=== PATIENT | male | born 1995 | race African-American/Black ===

== ENCOUNTER 2019-07-30 17:41 | Emergency (ER) | payer MEDICAID ==
[~2019-07-30] VITALS: Ht 170.2 cm; Wt 52.2 kg
[2019-07-30 18:04] VITALS: BP 130/68
[2019-07-30] MEDS ORDERED: HYDROCODONE/APAP 5/325MG 1 EACH TABLET ONE (18:56)
[2019-07-30] MEDS ORDERED: HYDROCODONE/APAP 5/325MG 1 EACH TABLET PO ONE (19:00)
--- NOTE | 2019-07-30 19:21 | NUR ---
Patient discharged to home in stable condition. Written and verbal after care instructions given. Patient verbalizes understanding of instruction. Pt ambulatory with a steady gait
== END 2019-07-30 19:22 | disposition home or self-care (01) ==
LOC: ER 17:47
DX: K02.9 Dental caries, unspecified (principal); W18.39XA Other fall on same level, initial encounter; Y93.89 Activity, other specified; Y92.89 Other specified places as the place of occurrence of the external cause; Y99.8 Other external cause status